=== PATIENT | female | born 1960 | race Caucasian/White ===

== ENCOUNTER 2021-05-14 05:33 | Observation (INO) ==
[2021-05-14] MEDS ORDERED: ROPIVACAINE 0.5% 30 ML VIAL ONE (06:07)
[2021-05-14] MEDS ORDERED: DEXAMETHASONE 4 MG/1 ML VIAL ONE (06:07)
[2021-05-14] MEDS ORDERED: LIDOCAINE 1% 5 ML VIAL ONE (06:07)
[2021-05-14] MEDS ORDERED: DEXMEDETOMIDINE 200 MCG/2 ML VIAL ONE (06:12)
[2021-05-14] MEDS ORDERED: VANCOMYCIN INJ 1,000 MG in SODIUM CHLORIDE 0.9% 250 ML IV ONE ×2 (06:30→20:18)
[2021-05-14] MEDS ORDERED: ceFAZolin 2,000 MG/50 ML DUPLEX IV ONE (06:30)
[2021-05-14] MEDS ORDERED: FAMOTIDINE 20 MG TABLET PO ONE (06:35)
[2021-05-14] MEDS ORDERED: ACETAMINOPHEN 500 MG TABLET PO ONE (06:35)
[2021-05-14] MEDS ORDERED: GABAPENTIN 400 MG CAPSULE PO ONE (06:35)
[2021-05-14] MEDS: LACTATED RINGERS 1,000 ML IV SCH ×4 (06:48→17:17)
[2021-05-14 07:05] LABS: INR 0.9; PT Patient Result 10.6 SECS (10.5-12.0); Partial Thromboplastin Time 25.9 SECS (23.8-32.1)
[2021-05-14] MEDS ORDERED: BUPIVACAINE SPINAL 0.75% 2 ML AMP SPINAL ONE (08:12)
[2021-05-14] MEDS ORDERED: MIDAZOLAM 2 MG/2 ML VIAL ONE (08:21)
[2021-05-14] MEDS ORDERED: GLYCOPYRROLATE 0.4 MG/2 ML VIAL ONE (08:50)
[2021-05-14] MEDS ORDERED: MORPHINE 2 MG/1 ML SYRINGE IV PRN ×2 (09:00)
[2021-05-14] MEDS ORDERED: ZALEPLON 5 MG CAPSULE PO PRN (09:00)
[2021-05-14] MEDS ORDERED: oxyCODONE/ACETAMINOPHEN 5-325 MG TABLET PO PRN (09:00)
[2021-05-14] MEDS ORDERED: diphenhydrAMINE CAP 25 MG CAPSULE PO PRN (09:00)
[2021-05-14] MEDS ORDERED: ONDANSETRON 4 MG/2 ML VIAL IV PRN (09:00)
[2021-05-14] MEDS ORDERED: MAGNESIUM HYDROXIDE SUSP 30 ML UDCUP PO PRN (09:00)
[2021-05-14] MEDS ORDERED: TRANEXAMIC ACID 1,000 MG/10 ML VIAL ONE (09:00)
[2021-05-14] MEDS ORDERED: BACITRACIN OINT 0.9 GM PACK TOP ONE (09:17)
[2021-05-14 10:36] LABS: Glucose,Urine (UA) Negative (Negative); Hyaline Casts,Urine 1 /LPF (0-3); Ketones,Urine Negative (Negative); Protein,Urine Negative; RBC,Urine 2 /HPF (0-4); Squamous Epithelial Cell,Urine Occasional /HPF (0-10); Urine Appearance Clear (Clear); Urine Color Yellow (Yellow)
[2021-05-14 10:37] LABS: Bilirubin,Urine Negative (Negative); Blood, Urine Negative (Negative); Nitrite,Urine Negative (Negative); Urine Urobilinogen 0.2 EU/DL (<2.0)
[2021-05-14] MEDS ORDERED: PHENYLEPHRINE 1 MG/10 ML SYRINGE IV ONE (12:21)
[2021-05-14] MEDS ORDERED: CLINDAMYCIN INJ 900 MG/50 ML PREMIX IV SCH (13:00)
[2021-05-14] MEDS ORDERED: MORPHINE 4 MG/1 ML VIAL IV PRN ×2 (15:00)
[2021-05-14] MEDS: KETOROLAC 30 MG/1 ML VIAL IV SCH ×3 (15:02→21:43)
[2021-05-14] MEDS: ceFAZolin 2,000 MG/50 ML DUPLEX IV SCH (15:26)
[2021-05-14] MEDS: oxyCODONE/ACETAMINOPHEN 5-325 MG TABLET PO PRN (18:00)
[2021-05-14] MEDS: DOCUSATE SODIUM 100 MG CAPSULE PO SCH (21:38)
[2021-05-14] MEDS: CITALOPRAM 20 MG TABLET PO SCH (21:38)
[2021-05-15] MEDS: ceFAZolin 2,000 MG/50 ML DUPLEX IV SCH ×2 (00:06→08:59)
[2021-05-15] MEDS: LACTATED RINGERS 1,000 ML IV SCH (02:01)
[2021-05-15 02:24] LABS: Basophils % 0.1 % (0.0-0.8); Hematocrit 34.3 VOL% (35.7-47.0); Hemoglobin 11.4 GM/DL (12.0-16.0); Immature Granulocytes % 0.4 %; Immature Granulocytes Absolute 0.05 #; Lymphocytes # 1.7 10*3/uL (1.4-4.0); Lymphocytes % 14.7 % (21.3-54.2); Mean Corpuscular HGB Conc 33.2 GM/DL (32-36); Mean Platelet Volume 9.6 FL (9.6-12.0); Monocytes % 7.6 % (1.7-12.7); Neutrophils % 77.2 % (38.7-73.9); Platelet Count 257 T/CUMM (130-400); Red Blood Count 3.73 MC/CUMM (3.8-5.5); Red Cell Distribution Width 13.1 % (9.3-17.3); White Blood Count 11.7 T/CUMM (4-12)
[2021-05-15 02:41] LABS: Calcium 8.2 MG/DL (8.5-10.1); Osmolality,Calculated 271.1 MOS/KG (273-304); Potassium 4.2 MMOL/L (3.5-5.1)
[2021-05-15] MEDS: KETOROLAC 30 MG/1 ML VIAL IV SCH (02:47)
[2021-05-15] MEDS ORDERED: FONDAPARINUX 2.5 MG/0.5 ML SYRINGE SUBCUT SCH (05:00)
[2021-05-15] MEDS: oxyCODONE/ACETAMINOPHEN 5-325 MG TABLET PO PRN ×2 (05:57→10:38)
[2021-05-15] MEDS: CITALOPRAM 20 MG TABLET PO SCH (08:05)
[2021-05-15] MEDS: DOCUSATE SODIUM 100 MG CAPSULE PO SCH (08:05)
[2021-05-15] MEDS ORDERED: ATORVASTATIN 20 MG TABLET PO SCH (09:00)
[2021-05-15 11:33] VITALS: BP 123/51
== END 2021-05-15 13:19 | disposition home health service (06) ==
LOC: N.OR 05:33 → N.SDSINP 05:33 → N.3E 09:00 → INTOOBSV 09:00 → EDSTATUS 10:00 → N.3E 12:15
PROVIDERS: ADMIT Orthopaedic Surgery; ATTEND Orthopaedic Surgery